=== PATIENT | male | born 1985 | race Caucasian/White ===

== ENCOUNTER 2019-03-03 10:54 | Emergency (ER) | payer OTHER ==
--- NOTE | 2019-03-03 11:40 | ER Document Report ---
ED Medical Screen (RME) - General Chief Complaint: Productive Cough Stated Complaint: BACK PAIN, COUGH, CONGESTION Time Seen by Provider: 03/03/19 11:38 Mode of Arrival: Ambulatory Information source: Patient Notes: 34-year-old male presents to ED for complaint of cough green sputum with low back pain and flank pain at times upper back pain. 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 He states he lives with his family does not have any medical history except for a boxer fracture. He states he had to call for several weeks and is getting worse and is causing a lot of pain. He is alert oriented respirations regular and unlabored speaking in full sentences. I have greeted and performed a rapid initial assessment of this patient. A comprehensive ED assessment and evaluation of the patient, analysis of test results and completion of medical decision making process will be conducted by an additional ED providers. - Related Data Allergies/Adverse Reactions: No Known Allergies Allergy (Unverified 03/03/19 11:28) Past Medical History - Social History Frequency of alcohol use: None Drug Abuse: Marijuana Physical Exam - Vital signs Vitals: Temp Pulse Resp BP Pulse Ox 98.1 F 62 16 122/79 95 03/03/19 10:59 03/03/19 10:59 03/03/19 10:59 03/03/19 10:59 03/03/19 10:59 Course - Vital Signs Vital signs: Temp Pulse Resp BP Pulse Ox 98.1 F 62 16 122/79 95 03/03/19 10:59 03/03/19 10:59 03/03/19 10:59 03/03/19 10:59 03/03/19 10:59
--- NOTE | 2019-03-03 12:26 | ER Document Report ---
ED General - General Chief Complaint: Productive Cough Stated Complaint: BACK PAIN, COUGH, CONGESTION Time Seen by Provider: 03/03/19 11:38 Mode of Arrival: Ambulatory - [facility] Notes: 34-year-old male presents with 2 weeks of productive cough, green sputum. Initially runny nose cough and congestion and now more cough. Developed some right posterior lateral back pain, sharp, worse with motion and coughing. Began last night suddenly after particularly vigorous coughing spell. - Related Data Allergies/Adverse Reactions: No Known Allergies Allergy (Unverified 03/03/19 11:28) Past Medical History - General Information source: Patient - Social History Smoking Status: Former Smoker Frequency of alcohol use: None Drug Abuse: Marijuana Family History: Reviewed & Not Pertinent Patient has suicidal ideation: No Patient has homicidal ideation: No - Medical History Medical History: Negative Review of Systems - Review of Systems Notes: Review of systems as in the history of present illness, otherwise negative x 10 systems. Physical Exam - Vital signs Vitals: Temp Pulse Resp BP Pulse Ox 98.1 F 62 16 122/79 95 03/03/19 10:59 03/03/19 10:59 03/03/19 10:59 03/03/19 10:59 03/03/19 10:59 - Notes Notes: General: Well developed . HEENT: Normocephalic, atraumatic. Pupils equal round reactive to light. No JVD. Chest: No trauma. Respiratory: Good air exchange, normal excursion. Cardiac: Regular rhythm. No murmurs or gallops. Abdomen: Soft, benign. Nondistended. Nontender. Back: No asymmetry or gross abnormality. Motor: Grossly normal power and tone. Neurologic: Alert, nonfocal. Cranial nerves II-12 are intact. Sensation intact. Vascular: Well perfused. Normal peripheral pulses. Skin: No petechiae or purpura. Course - Re-evaluation Re-evalutation: 03/03/19 12:26 Patient was evaluated by the [facility] provider prior to my evaluation. Studies / interventions have been ordered by this provider and may still be pending. Appearing male with likely viral bronchitis and post bronchitic sequelae. However, will obtain chest x-ray to exclude pneumonia, reevaluate. 03/03/19 13:05 Plain films show evidence of right lower lung field pneumonia. Patient is treated with doxycycline, prescription for same, outpatient follow-up. - Vital Signs Vital signs: Temp Pulse Resp BP Pulse Ox 98.1 F 62 16 122/79 95 03/03/19 10:59 03/03/19 10:59 03/03/19 10:59 03/03/19 10:59 03/03/19 10:59 Discharge - Discharge Clinical Impression: Pneumonia Qualifiers: Pneumonia type: due to unspecified organism Laterality: right Lung location: lower lobe of lung Qualified Code(s): J18.1 - Lobar pneumonia, unspecified organism Disposition: HOME, SELF-CARE Instructions: Pneumonia ([facility]) Additional Instructions: Follow up with your primary care doctor in 1 to 2 days Prescriptions: Doxycycline Hyclate 100 mg PO BID #14 capsule Referrals: [facility] [NO LOCAL MD] - Follow up as needed
--- NOTE | 2019-03-03 12:55 | RADIOLOGY REPORT (SQ) ---
EXAM DESCRIPTION: CHEST 2 VIEWS COMPLETED DATE/TIME: 03/03/2019 12:44 pm REASON FOR STUDY: Cough congestion green sputum sometimes flank pain COMPARISON: None. EXAM PARAMETERS: NUMBER OF VIEWS: two views TECHNIQUE: Digital Frontal and Lateral radiographic views of the chest acquired. RADIATION DOSE: NA LIMITATIONS: none FINDINGS: LUNGS AND PLEURA: Asymmetric airspace opacities in the right lower lobe. There is no pleu ral effusion or pneumothorax. MEDIASTINUM AND HILAR STRUCTURES: No mediastinal hilar contour abnormality. HEART AND VASCULAR STRUCTURES: The cardiac silhouette and pulmonary vasculature are within normal hickman its. BONES: No acute findings. HARDWARE: None. OTHER: No other finding. IMPRESSION: Right lower lobe pneumonia. TECHNICAL DOCUMENTATION: JOB ID: [id number] [employer]- All Rights Reserved Reading location - IP/workstation name: [email or web address]
[2019-03-03] MEDS ORDERED: DOXYCYCLINE HYCLATE 100 MG TABLET PO ONE (13:05)
[2019-03-03 13:27] VITALS: BP 127/79
== END 2019-03-03 13:31 | disposition home or self-care (01) ==
LOC: ER 10:54
DX: J18.1 Lobar pneumonia, unspecified organism (principal); R05 Cough; F12.10 Cannabis abuse, uncomplicated; M54.9 Dorsalgia, unspecified; Z87.891 Personal history of nicotine dependence
CPT/HCPCS: 71046; 99283

== ENCOUNTER 2019-03-13 17:42 | Emergency (ER) | payer OTHER ==
[2019-03-13 17:51] VITALS: BP 122/66
--- NOTE | 2019-03-13 17:55 | ER Document Report ---
HPI - HPI Notes: Patient is a 34-year-old male who presents for reevaluation after being diagnosed with pneumonia 10 days ago. He was placed on doxycycline for 1 week. Patient states that he is feeling much better. He does have an occasional cough, but nothing as significant as it was. Patient states that he is here to make sure that it is gone and does not need any more medicines. Denies drug allergies. He is otherwise able to eat and drink without difficulties. He is urinating normally and having normal bowel movements. Patient also stopped smoking when he was diagnosed with pneumonia and states that he is done for good. Denies any headache, fever, neck pain, URI, sore throat, chest pain, palpitations, syncope, shortness of breath, wheeze, dyspnea, abdominal pain, nausea/vomiting/diarrhea, urinary retention, dysuria, hematuria, or rash. - ROS Systems Reviewed and Negative: Yes All other systems reviewed and negative - REPRODUCTIVE Reproductive: DENIES: : Past Medical History - Social History Smoking Status: Former Smoker Family History: Reviewed & Not Pertinent Vertical Provider Document - CONSTITUTIONAL Agree With Documented VS: Yes Notes: PHYSICAL EXAMINATION: GENERAL: Well-appearing, well-nourished and in no acute distress. HEAD: Atraumatic, normocephalic. EYES: Pupils equal round and reactive to light, extraocular movements intact, sclera anicteric, conjunctiva are normal. ENT: Nares patent and without discharge. oropharynx clear without exudates. No tonsilar hypertrophy or erythema. Moist mucous membranes. No sinus tenderness. NECK: Normal range of motion, supple without lymphadenopathy LUNGS: Breath sounds clear to auscultation bilaterally and equal. No wheezes rales or rhonchi. HEART: Regular rate and rhythm without murmurs, rubs, gallops. Musculoskeletal: FROM to passive/active. Strength 5+/5. Extremities: No cyanosis, clubbing, or edema b/l. Peripheral pulses 2+. Capillary refill less than 3 seconds. NEUROLOGICAL: Normal speech, normal gait. PSYCH: Normal mood, normal affect. SKIN: Warm, Dry, normal turgor, no rashes or lesions noted. Course - Re-evaluation Re-evalutation: 03/13/19 Patient is an afebrile, well-hydrated, 34 year-old male who presents to the ED with resolved pneumonia on XR with mild cough, suspect inflammatory. Vitals are acceptable. PE is otherwise unremarkable. CXR unremarkable. No other labs or imaging warranted at this time based on H&P. Patient has no significant cardiopulmonary or immunocompromised medical conditions. Patient's lungs are clear to auscultation bilaterally without tachycardia, hypoxia, or tachypnea. Patient is tolerating p.o. without any difficulties. Low suspicion for any meningitis, sepsis, peritonsillar/pharyngeal abscess, respiratory compromise, severe dehydration, or other emergent systemic condition at this time. Patient is aware this condition can change from initial presentation and he needs to monitor symptoms closely. Conservative measures otherwise for symptoms. Recheck with your PCM in 3-5 days. Return to the ED with any worsening/concerning symptoms otherwise as reviewed in discharge. Patient is in agreement. - Vital Signs Vital signs: Temp Pulse Resp BP Pulse Ox 98.2 F 66 15 122/66 99 03/13/19 17:49 03/13/19 17:49 03/13/19 17:49 03/13/19 17:49 03/13/19 17:49 Discharge - Discharge Clinical Impression: Cough Condition: Stable Disposition: HOME, SELF-CARE Additional Instructions: Maintain adequate fluid intake tylenol/ibuprofen as needed over the counter cold medication as needed for symptoms Humidified air may help Wash your hands regularly Wear a mask when coughing F/u: with your PCM in 3-5 days for a recheck or as needed Return to the ED with any fever, altered mental status/behavior, chest pain, palpitations, syncope, headache, neck pain/stiffness, shortness of breath, chest pains, wheezing, drooling, trouble swallowing/breathing, abdominal pain, n/v/d, rash, or worsening/concerning symptoms otherwise. Referrals: [facility] [Provider Group] - Follow up as needed
--- NOTE | 2019-03-13 18:09 | RADIOLOGY REPORT (SQ) ---
EXAM DESCRIPTION: CHEST 2 VIEWS COMPLETED DATE/TIME: 03/13/2019 6:01 pm REASON FOR STUDY: recheck pneumonia after treatment COMPARISON: 03/03/2019 EXAM PARAMETERS: NUMBER OF VIEWS: two views TECHNIQUE: Digital Frontal and Lateral radiographic views of the chest acquired. RADIATION DOSE: NA LIMITATIONS: none FINDINGS: LUNGS AND PLEURA: No opacities, masses or pneumothorax. No pleural effusion. MEDIASTINUM AND HILAR STRUCTURES: No masses or contour abnormalities. HEART AND VASCULAR STRUCTURES: Heart normal size. No evidence for failure. BONES: No acute findings. HARDWARE: None in the chest. OTHER: No other significant finding. IMPRESSION: Normal chest. The right lower lobe infiltrate has resolved. TECHNICAL DOCUMENTATION: JOB ID: [id number] [employer]- All Rights Reserved Reading location - IP/workstation name: [email or web address]
== END 2019-03-13 18:43 | disposition home or self-care (01) ==
LOC: ER 17:42
DX: R05 Cough (principal)
CPT/HCPCS: 71046; 99283